=== PATIENT | female | born 1940 | race Caucasian/White ===

== ENCOUNTER → 2019-12-22 | Outpatient (CLI) | payer MEDICARE ==
--- NOTE | 2019-12-22 10:24 | RAD ---
DOPPLER CAROTID BILAT History: Reason: HEADACHE CHANGES / Spl. Instructions: / History: Multiple grayscale, color, and duplex spectral analysis waveform sonographic images were acquired of the carotid, subclavian, and vertebral arteries. Comparison: None Findings: RIGHT SIDE: Peak systolic flow velocity of the distal CCA is 82 cm/sec. Peak systolic flow velocity of the ICA is 16 cm/sec. The ICA/CCA ratio is 0.8. Peak end diastolic flow velocity of the ICA is 19 cm/sec. The peak systolic velocity of the ECA is 123 cm/sec. No significant plaque formation is identified. LEFT SIDE: Peak systolic flow velocity of the distal CCA is 87 cm/sec. Peak systolic flow velocity of the ICA is 80 cm/sec. The ICA/CCA ratio is 1.0. Peak end diastolic flow velocity of the ICA is 25 cm/sec. Peak systolic flow velocity of the ECA is 97 cm/sec. Mild plaque formation is identified. Vertebral arteries: Bilateral vertebral arteries demonstrate antegrade flow. Impression: Atherosclerosis with less than 50 percent stenosis of the left ICA. No stenosis of the right ICA. PQRS Compliance Statement - Stenosis calculations for carotid ultrasound studies are derived from validated velocity criteria which are known to correlate with the NASCET methodology. Electronically signed by: Kaushal Wright MD (12/22/2019 10:21 AM) [id number]
== END ==
LOC: US 09:42
PROVIDERS: ATTEND Family Medicine
DX: I65.22 Occlusion and stenosis of left carotid artery (principal)
CPT/HCPCS: 93880

== ENCOUNTER 2021-03-09 15:18 | Emergency (ER) | payer MEDICARE ==
[~2021-03-09] VITALS: Ht 167.6 cm; Wt 79.5 kg
--- NOTE | 2021-03-09 15:58 | RAD ---
EXAM: Left knee, 3 views. HISTORY: Pain. Fall. COMPARISON: None. FINDINGS: 3 views of the left knee are obtained. There is no fracture, dislocation or subluxation. Th ere is medial compartment spurring. There is a moderate to large joint effusion. There are vascular c alcifications. There is suspected bone demineralization. IMPRESSION: 1. Moderate to large right knee effusion. 2. 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 Electronically signed by: Anastasia Lozoya MD (03/09/2021 3:55 PM) [id number]
[2021-03-09 16:15] VITALS: BP 146/73
[2021-03-09] MEDS ORDERED: HYDROcodone/APAP 5/325MG 1 TAB TABLET ONE (16:26)
[2021-03-09] MEDS: HYDROcodone/APAP 5/325MG 1 TAB TABLET PO ONE (16:32)
--- NOTE | 2021-03-09 16:40 | RAD ---
CT HEAD AND C-SPINE WO History: Fall. Comparison: None. Technique: Noncontrast CT of the head and cervical spine. Findings: CT HEAD: There is no evidence for intracranial mass or hemorrhage. There is no hydrocephalus or midline shift. No abnormal extra-axial fluid collections are present. Godinez/white matter differentiation is preserved. Calcifications of the internal carotid arteries. Prominent pineal calcification. The visualized paranasal sinuses and mastoid air cells are clear. The skull and scalp are within normal limits. Postsurgical changes of the lenses. CT CERVICAL SPINE: There is no evidence for fracture in the cervical spine. Alignment is normal. Multilevel degenerative disc disease with disc space narrowing and disc osteophyte complexes. Central disc protrusion at C4-C5 narrows the spinal canal to approximately 6 mm and at C5-C6 narrows the spi nal canal to approximately 7 mm. No destructive osseous lesions are seen. Limited evaluation of the soft tissues of the neck and of the upper chest is unremarkable. Impression: 1. No acute intracranial findings. 2. No acute osseous abnormality in the cervical spine. 3. Multilevel cervical degenerative disc disease with moderate to severe spinal canal stenosis at C4 -C5 where central disc protrusion narrows the canal to approximately 6 mm and moderate stenosis at C5 -C6 where disc protrusion narrows the canal to 7 mm. ------- Exposure: One or more of the following individualized dose reduction techniques were utilized for thi s examination: 1. Automated exposure control 2. Adjustment of the mA and/or kV according to patient size 3. Use of iterative reconstruction technique. Electronically signed by: Ciro Farris MD (03/09/2021 4:38 PM) [id number]
--- NOTE | 2021-03-09 17:06 | PHYS DOC ---
Past History Past Surgical History: No Surgical History (WINIFRED ROSALES APRN) General Adult EDM: Chief Complaint: KNEE INJURY HPI: HPI: Patient is a 80-year-old female presents after a fall. Patient states that she tripped on the curb and fell onto her knees and hit her head on the concrete. Patient has an abrasion to the right side of her forehead along with left knee swelling. Patient denies loss of consciousness. Denies blood thinners. Denies neck pain. Patient reports taking hydrocodone after incident occurred. Patient still reporting left knee pain. (WINIFRED ROSALES APRN) Review of Systems: Review of Systems: Constitutional: Denies fever or chills Eyes: Denies change in visual acuity HENT: Denies nasal congestion or sore throat Respiratory: Denies cough or shortness of breath Cardiovascular: Denies chest pain or edema GI: Denies abdominal pain, nausea, vomiting, bloody stools or diarrhea : Denies dysuria Musculoskeletal: Reports left knee pain. Denies back pain or joint pain Integument: Denies rash Neurologic: Denies headache, focal weakness or sensory changes Endocrine: Denies polyuria or polydipsia Lymphatic: Denies swollen glands Psychiatric: Denies depression or anxiety (WINIFRED ROSALES APRN) Current Medications: Current Meds: Current Medications Medications (Trade) Dose Ordered Sig/Phil Start Time Stop Time Status Last Admin Dose Admin Acetaminophen/ Hydrocodone Bitart (Lortab 5/325) 1 tab STK-MED ONCE 03/09/21 16:26 03/09/21 16:26 DC (WINIFRED ROSALES APRN) Allergies: Allergies: Allergies Coded Allergies Type Severity Reaction Last Updated Verified cortisone Allergy Unknown 03/09/21 Yes Uncoded Allergies Type Severity Reaction Last Updated Verified PENICILLIN Allergy Unknown 03/09/21 (WINIFRED ROSALES APRN) Physical Exam: PE: Constitutional: Well developed, well nourished, no acute distress, non-toxic appearance. [] HENT: Normocephalic, atraumatic, bilateral external ears normal, oropharynx moist, no oral exudates, nose normal. [] Eyes: PERRLA, EOMI, conjunctiva normal, no discharge. [] Neck: Normal range of motion, no tenderness, supple, no stridor. [] Cardiovascular:Heart rate regular rhythm, no murmur [] Lungs & Thorax: Bilateral breath sounds clear to auscultation [] Abdomen: Bowel sounds normal, soft, no tenderness, no masses, no pulsatile masses. [] Skin: Abrasion to right side, anterior forehead Back: No tenderness, no CVA tenderness. [] Extremities: Left knee tenderness, bruising, ROM intact, swelling noted Neurologic: Alert and oriented X 3, normal motor function, normal sensory function, no focal deficits noted. [] Psychologic: Affect normal, judgement normal, mood normal. [] (WINIFRED ROSALES APRN) Current Patient Data: Vital Signs: Vital Signs Date Time Temp Pulse Resp B/P (MAP) Pulse Ox O2 Delivery O2 Flow Rate FiO2 03/09/21 16:32 20 Room Air 03/09/21 16:15 98.2 62 146/73 98 (WINIFRED ROSALES APRN) EKG: EKG: [] (WINIFRED ROSALES APRN) Radiology/Procedures: Radiology/Procedures: EXAM: Left knee, 3 views. HISTORY: Pain. Fall. COMPARISON: None. FINDINGS: 3 views of the left knee are obtained. There is no fracture, dislocation or subluxation. There is medial compartment spurring. There is a moderate to large joint effusion. There are vascular calcifications. There is suspected bone demineralization. IMPRESSION: 1. Moderate to large right knee effusion. 2. 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 Electronically signed by: Anastasia Lozoya MD (03/09/2021 3:55 PM) [id number] CT HEAD AND C-SPINE WO History: Fall. Comparison: None. Technique: Noncontrast CT of the head and cervical spine. Findings: CT HEAD: There is no evidence for intracranial mass or hemorrhage. There is no hydrocephalus or midline shift. No abnormal extra-axial fluid collections are present. Godinez/white matter differentiation is preserved. Calcifications of the internal carotid arteries. Prominent pineal calcification. The visualized paranasal sinuses and mastoid air cells are clear. The skull and scalp are within normal limits. Postsurgical changes of the lenses. CT CERVICAL SPINE: There is no evidence for fracture in the cervical spine. Alignment is normal. Multilevel degenerative disc disease with disc space narrowing and disc osteophyte complexes. Central disc protrusion at C4-C5 narrows the spinal canal to approximately 6 mm and at C5-C6 narrows the spinal canal to approximately 7 mm. No destructive osseous lesions are seen. Limited evaluation of the soft tissues of the neck and of the upper chest is unremarkable. Impression: 1. No acute intracranial findings. 2. No acute osseous abnormality in the cervical spine. 3. Multilevel cervical degenerative disc disease with moderate to severe spinal canal stenosis at C4-C5 where central disc protrusion narrows the canal to approximately 6 mm and moderate stenosis at C5-C6 where disc protrusion narrows the canal to 7 mm. ------- Exposure: One or more of the following individualized dose reduction techniques were utilized for this examination: 1. Automated exposure control 2. Adjustment of the mA and/or kV according to patient size 3. Use of iterative reconstruction technique. Electronically signed by: Ciro Farris MD (03/09/2021 4:38 PM) [id number] (WINIFRED ROSALES APRN) Heart Score: C/O Chest Pain: No Risk Factors: Risk Factors: DM, Current or recent (<one month) smoker, HTN, HLP, family history of CAD, obesity. Risk Scores: Score 0 - 3: 2.5% MACE over next 6 weeks - Discharge Home Score 4 - 6: 20.3% MACE over next 6 weeks - Admit for Clinical Observation Score 7 - 10: 72.7% MACE over next 6 weeks - Early Invasive Strategies (WINIFRED ROSALES APRN) Course & Med Decision Making: Course & Med Decision Making Pertinent Labs and Imaging studies reviewed. (See chart for details) [] 80-year-old female who presents after a fall at home. Patient states that she tripped over the sidewalk and fell onto her belly. Patient states that she had the right side, anterior head. Denies blood thinners. Denies loss of consciousness. Patient is also reporting pain and bruising to her left knee. Patient still has range of motion intact. Patient given 5/325 hydrocodone for discomfort. Left knee x-rays negative for fracture. CT head neck negative for fracture or intracranial bleeding. Discussed results with patient. Gave rice instructions. Advised patient to call her PCP and make a follow-up appointment for tomorrow. Patient given strict return precautions. Patient is hemodynamically stable upon disposition. (WINIFRED ROSALES APRN) Lesly Disclaimer: Lesly Disclaimer: This electronic medical record was generated, in whole or in part, using a voice recognition dictation system. (WINIFRED ROSALES APRN) Departure Departure: Impression: Primary Impression: Fall Qualified Codes: W19.XXXA - Unspecified fall, initial encounter Additional Impression: Swelling of knee joint, left Disposition: HOME / SELF CARE / HOMELESS Condition: STABLE Referrals: BENJI WINN MD (PCP) Patient Instructions: RICE - Routine Care for Injuries, [id number] Additional Instructions: You are seen in the emergency room after tripping and falling at home. X-ray of your knee was negative. CT head and neck was negative for fracture or bleeding. Its important that you rest, use ice to the area, continue using the knee brace, and elevate to help with swelling and pain. Ibuprofen and Tylenol at home for discomfort. Please call your PCP and make a follow-up appointment for further management. Return to the emergency room if you have worsening symptoms or concerns. EMERGENCY DEPARTMENT GENERAL DISCHARGE INSTRUCTIONS Thank you for coming to [facility] (ED) today and trusting us with you care. We trust that you had a positivie experience in our Emergency Department. If you wish to speak to the department management, you may call the director at [phone]. YOUR FOLLOW UP INSTRUCTIONS ARE FOLLOWS: 1. Do you have a private Doctor? If you do not have a private doctor, please a sk for a resource list of physicians or clinics that may be able to assist you with follow up care. 2. The Emergency Physician has interpreted your x-rays. The X-Ray specialist will also review them. If there is a change in the findings, you will be notified in 48 hours when at all possible. 3. A lab test or culture has been done, your results will be reviewed and you will be notified if you need a change in treatment. ADDITIONAL INSTRUCTIONS AND INFORMATION: 1. Your care today has been supervised by a physician who is specially trained in emergency care. Many problems require more than one evaluation for a complete diagnosis and treatment. We recommend that you schedule your follow up appointment as recommended to ensure complete treatment of you illness or injury. If you are unable to obtain follow up care and continue to have a problem, or if your condition worsens, we recommend that you return to the ED. 2. We are not able to safely determine your condition over the phone nor are we able to give sound medical advice over the phone. For these safety reasons, if you call for medical advice we will ask you to come to the ED for further evaluation. 3. If you have any questions regarding these discharge instructions please call the ED at [phone]. SAFETY INFORMATION: In the interest of safety, wellness, and injury prevention; we encourage you to wear your sealbelt, if you smoke; quite smoking, and we encourage family to use a protective helmet for bicycling and other sporting events that present an increased risk for head injury. IF YOUR SYMPTOMS WORSEN OR NEW SYMPTOMS DEVELOP, OR YOU HAVE CONCERNS ABOUT YOUR CONDITION; OR IF YOUR CONDITION WORSENS WHILE YOU ARE WAITING FOR YOUR FOLLOW UP APPOINTMENT; EITHER CONTACT YOUR PRIMARY CARE DOCTOR, THE PHYSICIAN WHOSE NAME AND NUMBER YOU WERE GIVEN, OR RETURN TO THE ED IMMEDIATELY. Attending Signature Attending Signature I have reviewed the PA/RIP TAILER's note and plan of care. I was available for cons ultation as needed during the patient's visit in the emergency department. I agree with the clinical impression, plan, and disposition. (ELIZABETH HARRINGTON DO) WINIFRED ROSALES APRN Mar 09, 2021 17:06 ELIZABETH HARRINGTON DO Mar 09, 2021 23:35
== END 2021-03-09 17:28 | disposition home or self-care (01) ==
LOC: ER 15:18
DX: S80.02XA Contusion of left knee, initial encounter (principal); S00.81XA Abrasion of other part of head, initial encounter; Z88.8 Allergy status to other drugs, medicaments and biological substances; W10.1XXA Fall (on)(from) sidewalk curb, initial encounter; Y93.89 Activity, other specified; Y92.89 Other specified places as the place of occurrence of the external cause; Y99.8 Other external cause status
CPT/HCPCS: 70450; 72125; 73562; 99285

== ENCOUNTER 2021-04-22 10:51 | Emergency (ER) | payer MEDICARE ==
[~2021-04-22] VITALS: Ht 167.6 cm; Wt 79.5 kg
[2021-04-22 10:52] VITALS: BP 157/71
--- NOTE | 2021-04-22 10:58 | PHYS DOC ---
Past History Past Surgical History: No Surgical History Alcohol Use: None General Adult EDM: Chief Complaint: NAUSEA/VOMITING/DIARRHEA HPI: HPI: Patient is an 80-year-old female who presents to the emergency department for generalized weakness, nausea and decreased appetite for a week. Patient reports that she had a knee replacement on her left knee on April 04 and ever since then has had the symptoms. Patient states that she was seen by her primary care provider and evaluated but was told that if her symptoms persist to go to the emergency department. She reports that she does not have any pain to her surgical site, had los out without any complications. Patient denies vomiting, diarrhea, fevers, shortness of breath, chest pain, abdominal pain, dysuria. Patient's vital signs are stable and she is in no acute distress. Review of Systems: Review of Systems: 14 body systems of the review of systems have been reviewed. See HPI for pertinent positive and negative responses, otherwise all other systems are negative, nonpertinent or noncontributory Allergies: Allergies: Allergies Coded Allergies Type Severity Reaction Last Updated Verified cortisone Allergy Unknown 03/09/21 Yes Uncoded Allergies Type Severity Reaction Last Updated Verified PENICILLIN Allergy Unknown 03/09/21 Physical Exam: PE: Constitutional: Well developed, well nourished, no acute distress, non-toxic appearance. [] HENT: Normocephalic, atraumatic, bilateral external ears normal, oropharynx moist, no oral exudates, nose normal. [] Eyes: PERRL, EOMI, conjunctiva normal, no discharge. [] Neck: Normal range of motion, no stridor Cardiovascular:Heart rate regular rhythm, no murmur [] Lungs & Thorax: Bilateral breath sounds clear to auscultation [] Abdomen: Bowel sounds normal, soft, no tenderness, no masses, no pulsatile masses. [] Skin: Warm, dry, no erythema, no rash. [] Back: Normal range of motion Extremities: No tenderness, no cyanosis, no clubbing, ROM intact, no edema. [] Neurologic: Alert and oriented X 3, normal motor function, normal sensory function, no focal deficits noted, patient moving all 4 extremities equally patient able to bear weight and ambulate. [] Psychologic: Affect normal, judgement normal, mood normal. [] Current Patient Data: Labs: Laboratory Tests Test 04/22/21 11:08 04/22/21 11:20 White Blood Count 9.2 x10^3/uL Red Blood Count 4.35 x10^6/uL Hemoglobin 13.0 g/dL Hematocrit 38.7 % Mean Corpuscular Volume 89 fL Mean Corpuscular Hemoglobin 30 pg Mean Corpuscular Hemoglobin Concent 34 g/dL Red Cell Distribution Width 14.0 % Platelet Count 684 x10^3/uL Neutrophils (%) (Auto) 77 % Lymphocytes (%) (Auto) 11 % Monocytes (%) (Auto) 9 % Eosinophils (%) (Auto) 1 % Basophils (%) (Auto) 1 % Neutrophils # (Auto) 7.1 x10^3uL Lymphocytes # (Auto) 1.0 x10^3/uL Monocytes # (Auto) 0.8 x10^3/uL Eosinophils # (Auto) 0.1 x10^3/uL Basophils # (Auto) 0.1 x10^3/uL Sodium Level 133 mmol/L Potassium Level 3.3 mmol/L Chloride Level 94 mmol/L Carbon Dioxide Level 28 mmol/L Anion Gap 11 Blood Urea Nitrogen 23 mg/dL Creatinine 0.8 mg/dL Estimated GFR (Cockcroft-Gault) 68.8 BUN/Creatinine Ratio 29 Glucose Level 114 mg/dL Calcium Level 10.3 mg/dL Total Bilirubin 0.8 mg/dL Aspartate Amino Transf (AST/SGOT) 31 U/L Alanine Aminotransferase (ALT/SGPT) 38 U/L Alkaline Phosphatase 169 U/L Troponin I Quantitative < 0.017 ng/mL Total Protein 7.5 g/dL Albumin 3.6 g/dL Albumin/Globulin Ratio 0.9 Urine Collection Type Unknown Urine Color Yellow Urine Clarity Clear Urine pH 7.5 Urine Specific [place] 1.015 Urine Protein Neg Urine Glucose (UA) Neg mg/dL Urine Ketones (Stick) Neg mg/dL Urine Blood Neg Urine Nitrite Neg Urine Bilirubin Neg Urine Urobilinogen Dipstick 0.2 mg/dL Urine Leukocyte Esterase Small Urine RBC 0 /HPF Urine WBC 1-4 /HPF Urine Squamous Epithelial Cells Occ /LPF Urine Bacteria Few /HPF Urine Mucus Slight /LPF Current Medications Medications (Trade) Dose Ordered Sig/Phil Route PRN Reason Start Time Stop Time Status Last Admin Dose Admin Sodium Chloride 1,000 ml @ 1,000 mls/hr Q1H IV 04/22/21 11:00 04/22/21 11:59 04/22/21 11:00 EKG: EKG: EKG performed by ER staff at 1058 shows sinus rhythm with a rate of 85, QTC of 426, no STEMI read by Dr. Knox at 1104 [] Radiology/Procedures: Radiology/Procedures: []PROCEDURE: PORTABLE CHEST 1V EXAM: Chest, single view. HISTORY: Weakness. COMPARISON: None. FINDINGS: A frontal view of the chest is obtained. There is no infiltrate, pleural effusion or pneumothorax. There is a large hiatal hernia. The heart is normal in size. IMPRESSION: 1. No acute pulmonary finding. 2. Large hiatal hernia. Electronically signed by: Anastasia Harper MD (04/22/2021 11:29 AM) [id number] DICTATED AND SIGNED BY: ANASTASIA HARPER MD DATE: 04/22/21 111 CC: BENJI WINN MD; SEBASTIEN WESTFALL PLANE CAPTAIN ~MTH0 0 Heart Score: C/O Chest Pain: No Risk Factors: Risk Factors: DM, Current or recent (<one month) smoker, HTN, HLP, family history of CAD, obesity. Risk Scores: Score 0 - 3: 2.5% MACE over next 6 weeks - Discharge Home Score 4 - 6: 20.3% MACE over next 6 weeks - Admit for Clinical Observation Score 7 - 10: 72.7% MACE over next 6 weeks - Early Invasive Strategies Course & Med Decision Making: Course & Med Decision Making Pertinent Labs and Imaging studies reviewed. (See chart for details) Patient is an 80-year-old female who presents to the emergency department for decreased appetite, generalized weakness and nausea. Work-up in the ER consisted of blood work, EKG, urinalysis and chest x-ray. Patient treated with an IV of normal saline and zofran. Patient's potassium was noted to be 3.3, this is a place in the emergency department. Her urinalysis shows a mild urinary tract infection which should be treated with an antibiotic. Patient states that she tolerates cephalosporins. Patient states that she has Zofran ODT at home that was previously prescribed by Dr. Mckeon, she was advised to continue taking that. Patient was noted to have a large hiatal hernia which is most likely the cause for her nausea. Patient referred to a general surgeon. vss. I discussed with patient all findings and diagnostic testing as well as the need to follow-up with PCP for further evaluation and treatment or return to the ER if any new or worsening symptoms. Strict return precautions were also discussed at length. Patient voiced understanding and agreement with the plan. Patient is hemodynamically stable at the time of disposition. Dragon Disclaimer: Dragon Disclaimer: This electronic medical record was generated, in whole or in part, using a voice recognition dictation system. Departure Departure: Impression: Primary Impression: Urinary tract infection Qualified Codes: N30.00 - Acute cystitis without hematuria Additional Impression: Hiatal hernia Disposition: HOME / SELF CARE / HOMELESS Condition: GOOD Referrals: BENJI WINN MD (PCP) Patient Instructions: Hernia, Urinary Tract Infection Additional Instructions: You were seen in the emergency department for generalized weakness along with nausea. You were noted to have a urinary tract infection, this will be treated with an antibiotic. Please start and finish it completely. Increase your fluids at home. Avoid bladder irritants such as caffeine, sugary beverages or alcohol. You stated that you had a nausea prescription that was written by Dr. Mckeon, continue taking this as needed. Your imaging showed a large hiatal hernia which is likely the cause for your nausea. You will need to follow-up with a general surgeon. You can follow-up with the general surgery group at [facility] by calling [phone] to set up a follow-up appointment. Follow-up with your primary care provider tomorrow regarding your ER visit. Please return to the emergency department if you develop severe abdominal pain, intractable nausea or vomiting, blood in your stools or vomit, h igh high fevers refractory to treatment or any new or worsening concerns. EMERGENCY DEPARTMENT GENERAL DISCHARGE INSTRUCTIONS Thank you for coming to [facility] (ED) today and trusting us with you care. We trust that you had a positivie experience in our Emergency Department. If you wish to speak to the department management, you may call the director at . YOUR FOLLOW UP INSTRUCTIONS ARE FOLLOWS: 1. Do you have a private Doctor? If you do not have a private doctor, please ask for a resource list of physicians or clinics that may be able to assist you with follow up care. 2. The Emergency Physician has interpreted your x-rays. The X-Ray specialist will also review them. If there is a change in the findings, you will be notified in 48 hours when at all possible. 3. A lab test or culture has been done, your results will be reviewed and you will be notified if you need a change in treatment. ADDITIONAL INSTRUCTIONS AND INFORMATION: 1. Your care today has been supervised by a physician who is specially trained in emergency care. Many problems require more than one evaluation for a complete diagnosis and treatment. We recommend that you schedule your follow up appointment as recommended to ensure complete treatment of you illness or injury. If you are unable to obtain follow up care and continue to have a problem, or if your condition worsens, we recommend that you return to the ED. 2. We are not able to safely determine your condition over the phone nor are we able to give sound medical advice over the phone. For these safety reasons, if you call for medical advice we will ask you to come to the ED for further evaluation. 3. If you have any questions regarding these discharge instructions please call the ED at [phone]. SAFETY INFORMATION: In the interest of safety, wellness, and injury prevention; we encourage you to wear your sealbelt, if you smoke; quite smoking, and we encourage family to use a protective helmet for bicycling and other sporting events that present an increased risk for head injury. IF YOUR SYMPTOMS WORSEN OR NEW SYMPTOMS DEVELOP, OR YOU HAVE CONCERNS ABOUT YOUR CONDITION; OR IF YOUR CONDITION WORSENS WHILE YOU ARE WAITING FOR YOUR FOLLOW UP APPOINTMENT; EITHER CONTACT YOUR PRIMARY CARE DOCTOR, THE PHYSICIAN WHOSE NAME AND NUMBER YOU WERE GIVEN, OR RETURN TO THE ED IMMEDIATELY. Scripts Cephalexin (CEPHALEXIN) 500 Mg Tablet 1 TAB PO BID for UTI for 7 Days, #14 TAB 0 Refills Prov: SEBASTIEN WESTFALL APRN 04/22/21 SEBASTIEN WESTFALL APRN Apr 22, 2021 10:58
[2021-04-22] MEDS: IV NORMAL SALINE 1,000ML 1,000 ML IV SCH (11:00)
[2021-04-22 11:26] LABS: BASO # 0.1 x10^3/uL (0.0-0.2); BASO % 1 % (0-3); EOS # 0.1 x10^3/uL (0.0-0.7); EOS % 1 % (0-3); HEMATOCRIT 38.7 % (36.0-47.0); LYMPH % 11 % (24-48); MEAN CORPUSCULAR HEMOGLOBIN 30 pg (25-35); MEAN CORPUSCULAR HGB CONC 34 g/dL (31-37); MEAN CORPUSCULAR VOLUME 89 fL (79-100); MONO # 0.8 x10^3/uL (0.0-1.1); MONO % 9 % (0-9); NEUT # 7.1 x10^3uL (1.8-7.7); NEUT % 77 % (31-73); PLATELET COUNT 684 x10^3/uL (140-400); RED BLOOD COUNT 4.35 x10^6/uL (3.50-5.40); WHITE BLOOD COUNT 9.2 x10^3/uL (4.0-11.0)
--- NOTE | 2021-04-22 11:31 | RAD ---
EXAM: Chest, single view. HISTORY: Weakness. COMPARISON: None. FINDINGS: A frontal view of the chest is obtained. There is no infiltrate, pleural effusion or pneumo thorax. There is a large hiatal hernia. The heart is normal in size. IMPRESSION: 1. No acute pulmonary finding. 2. Large hiatal hernia. Electronically signed by: Anastasia Lozoya MD (04/22/2021 11:29 AM) [id number]
[2021-04-22 11:39] LABS: CALCIUM 10.3 mg/dL (8.5-10.1); CREATININE 0.8 mg/dL (0.6-1.0); GFR 68.8; POTASSIUM 3.3 mmol/L (3.5-5.1)
[2021-04-22 11:45] LABS: ALBUMIN 3.6 g/dL (3.4-5.0); ALBUMIN/GLOBULIN RATIO 0.9 (1.0-1.7); TOTAL BILIRUBIN 0.8 mg/dL (0.2-1.0); TOTAL PROTEIN 7.5 g/dL (6.4-8.2)
[2021-04-22 11:46] LABS: BILIRUBIN,URINE NEG (NEG); CLARITY,URINE CLEAR; COLOR,URINE YELLOW; GLUCOSE,URINE NEG (NEG); NITRITE,URINE NEG (NEG); UROBILINOGEN,URINE 0.2 mg/dL (0.2 mg/dL)
[2021-04-22 11:47] LABS: BACTERIA,URINE FEW /HPF (0-FEW); RBC,URINE 0 /HPF (0-2); SQUAMOUS EPITHELIAL CELL,UR OCC /LPF
--- NOTE | 2021-04-22 12:03 | EKG ---
[address] [address] Test Date: 2021-04-22 Test Time: 10:58:29 Pat Name: DANIEL PEREZ Department: Room: Gender: F Hypo Dipper: TOÑO : 1940 Requested By: SEBASTIEN WESTFALL Order Number: [id number] Reading MD: Yuan Stapleton Measurements Intervals [place] Rate: 85 P: 12 [place]: 144 QRS: 2 QRSD: 88 T: 31 QT: 358 QTc: 426 Interpretive Statements SINUS RHYTHM ATRIAL PREMATURE COMPLEX(ES) Electronically Signed On 04-24-2021 16:49:43 CDT by Yuan Stapleton
[2021-04-22] MEDS ORDERED: CEPH500T PO (12:06)
[2021-04-22] MEDS: ONDANSETRON PF 4 MG/2 ML VIAL. IVP ONE (12:19)
[2021-04-22] MEDS: CEPHALEXIN 250 MG CAPSULE PO ONE (12:20)
[2021-04-22] MEDS: POTASSIUM CHLORIDE 20 MEQ TABLET.ER. PO ONE (12:20)
== END 2021-04-22 12:24 | disposition home or self-care (01) ==
LOC: ER 10:51
DX: N39.0 Urinary tract infection, site not specified (principal); K44.9 Diaphragmatic hernia without obstruction or gangrene
CPT/HCPCS: 36415; 71045; 80053; 81001; 84484; 85025; 87086; 93005; 96361; 96374; 99285; J2405; J7030

== ENCOUNTER 2021-04-27 09:37 | Inpatient (IN) | payer MEDICARE ==
[~2021-04-27] VITALS: Ht 160 cm; Wt 68.7 kg
[~2021-04-27 09:37] MED LIST: CEPH500T PO
--- NOTE | 2021-04-27 10:10 | PHYS DOC ---
Past History Past Surgical History: Knee Replacement Alcohol Use: None Adult General HPI HPI Patient is a 80-year-old female presenting via POV for weakness. She was here 5 days prior for evaluation and at that time was diagnosed with a UTI and subsequently put on antibiotics. Culture came back and unremarkable for any acute abnormalities but patient remains on antibiotics. She saw her primary care physician yesterday due to ongoing malaise, weakness, nausea and feelings of urinary retention. Because of that, patient had Ford catheter placed. She had this overnight and presented today for removal which was performed and uncomplicated in nature. Nonetheless, given ongoing nausea and malaise PCP directed patient to our ER for evaluation Review of Systems Review of Systems Fourteen body systems of review of systems have been reviewed. See HPI for pertinent positives and negative responses, other nguyễn all other systems are negative, non-pertinent or non-contributory Allergies Allergies Allergies Coded Allergies Type Severity Reaction Last Updated Verified cortisone Allergy Unknown 03/09/21 Yes Uncoded Allergies Type Severity Reaction Last Updated Verified PENICILLIN Allergy Unknown 03/09/21 Physical Exam Physical Exam Constitutional: Well developed, well nourished, no acute distress, non-toxic appearance. HENT: Normocephalic, atraumatic, bilateral external ears normal, oropharynx moist, no oral exudates, nose normal. Eyes: PERRLA, EOMI, conjunctiva normal, no discharge. Neck: Normal range of motion, no tenderness, supple, no stridor. Cardiovascular: Heart rate regular, sinus rhythm, no murmurs rubs or gallops Lungs & Thorax: Bilateral breath sounds clear to auscultation Abdomen: Bowel sounds normal, soft, no tenderness, no masses, no pulsatile masses. Nonsurgical abdomen, no peritoneal signs Skin: Warm, dry, no erythema, no rash. Back: No tenderness, no CVA tenderness. Extremities: No tenderness, no cyanosis, no clubbing, ROM intact, no edema. Neurologic: Alert and oriented X 3, grossly normal motor & sensory function, no focal deficits noted. Psychologic: Affect normal, judgement normal, mood normal. Current Patient Data Vital Signs Vital Signs Date Time Temp Pulse Resp B/P (MAP) Pulse Ox O2 Delivery O2 Flow Rate FiO2 04/27/21 10:43 97.8 72 16 164/64 (97) 99 Vital Signs Date Time Temp Pulse Resp B/P (MAP) Pulse Ox O2 Delivery O2 Flow Rate FiO2 10/13/21 10:43 97.8 72 16 164/64 (97) 99 Lab Results Laboratory Tests Test 04/27/21 10:33 White Blood Count 8.7 x10^3/uL Red Blood Count 4.33 x10^6/uL Hemoglobin 13.0 g/dL Hematocrit 37.6 % Mean Corpuscular Volume 87 fL Mean Corpuscular Hemoglobin 30 pg Mean Corpuscular Hemoglobin Concent 34 g/dL Red Cell Distribution Width 14.0 % Platelet Count 472 x10^3/uL Neutrophils (%) (Auto) 74 % Lymphocytes (%) (Auto) 13 % Monocytes (%) (Auto) 10 % Eosinophils (%) (Auto) 2 % Basophils (%) (Auto) 1 % Neutrophils # (Auto) 6.5 x10^3uL Lymphocytes # (Auto) 1.1 x10^3/uL Monocytes # (Auto) 0.9 x10^3/uL Eosinophils # (Auto) 0.2 x10^3/uL Basophils # (Auto) 0.1 x10^3/uL Sodium Level 121 mmol/L Potassium Level 3.3 mmol/L Chloride Level 85 mmol/L Carbon Dioxide Level 26 mmol/L Anion Gap 10 Blood Urea Nitrogen 13 mg/dL Creatinine 0.6 mg/dL Estimated GFR (Cockcroft-Gault) 95.9 BUN/Creatinine Ratio 22 Glucose Level 112 mg/dL Calcium Level 9.8 mg/dL Total Bilirubin 0.8 mg/dL Aspartate Amino Transf (AST/SGOT) 31 U/L Alanine Aminotransferase (ALT/SGPT) 26 U/L Alkaline Phosphatase 152 U/L Troponin I Quantitative < 0.017 ng/mL Total Protein 7.2 g/dL Albumin 3.2 g/dL Albumin/Globulin Ratio 0.8 Lipase 312 U/L Current Medications Medications (Trade) Dose Ordered Sig/Phil Route PRN Reason Start Time Stop Time Status Last Admin Dose Admin Ondansetron HCl (Zofran Odt) 4 mg 1X ONCE PO 04/27/21 10:15 04/27/21 10:25 DC EKG EKG EKG ordered and interpreted by myself at 1034 hrs. as sinus rhythm at 75 bpm, unremarkable intervals, no axis deviation, no acute ischemic findings, no STEMI Radiology/Procedures Radiology/Procedures [] Heart Score C/O Chest Pain: No HEART Score for Chest Pain: HEART Score for Chest Pain Response (Comments) Value History Slighlty/Non-Suspicious 0 ECG Normal 0 Age > 65 2 Risk Factors >3 Risk Factors or Hx CAD 2 Troponin < Normal Limit 0 Total 4 Risk Factors: Risk Factors: DM, Current or recent (<one month) smoker, HTN, HLP, family history of CAD, obesity. Risk Scores: Risk Factors: DM, Current or recent (<one month) smoker, HTN, HLP, family history of CAD, obesity. Course & Med Decision Making Course & Med Decision Making ABCs unremarkable HPI and physical exam nonconcerning but comprehensive ER work-up yielded hyponatremia and patient who utilizes diuretic medication (she is unsure of which one). She has not taken this today I contacted PCP who also would service hospitalist and reviewed need for h ospital admission for further correction of hyponatremia given risk of further decline and risk for seizures etc. He was amenable to admission and accepted patient under his care I updated patient on all ER findings and need for hospital admission, she was amenable. She states she is full CODE STATUS at time of admission. All questions and concerns addressed prior to transport to [facility] for admission Dragon Disclaimer Dragon Disclaimer This electronic medical record was generated, in whole or in part, using a voice recognition dictation system. Departure Departure: Impression: Primary Impression: Acute hyponatremia Disposition: ADMITTED INPATIENT Admitting Physician: Shawn Winn Condition: STABLE Referrals: SHAWN WINN MD (PCP) FRANC FREEDMAN DO Apr 27, 2021 10:10
[2021-04-27] MEDS ORDERED: ONDANSETRON ODT 4 MG TAB.RAPDIS PO ONE (10:15)
--- NOTE | 2021-04-27 10:35 | EKG ---
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
[2021-04-27 10:49] LABS: BASO # 0.1 x10^3/uL (0.0-0.2); BASO % 1 % (0-3); EOS # 0.2 x10^3/uL (0.0-0.7); EOS % 2 % (0-3); HEMATOCRIT 37.6 % (36.0-47.0); LYMPH # 1.1 x10^3/uL (1.0-4.8); LYMPH % 13 % (24-48); MEAN CORPUSCULAR HEMOGLOBIN 30 pg (25-35); MEAN CORPUSCULAR HGB CONC 34 g/dL (31-37); MEAN CORPUSCULAR VOLUME 87 fL (79-100); MONO # 0.9 x10^3/uL (0.0-1.1); MONO % 10 % (0-9); NEUT # 6.5 x10^3uL (1.8-7.7); NEUT % 74 % (31-73); PLATELET COUNT 472 x10^3/uL (140-400); RED BLOOD COUNT 4.33 x10^6/uL (3.50-5.40); WHITE BLOOD COUNT 8.7 x10^3/uL (4.0-11.0)
[2021-04-27 11:08] LABS: CALCIUM 9.8 mg/dL (8.5-10.1); CREATININE 0.6 mg/dL (0.6-1.0); GFR 95.9; POTASSIUM 3.3 mmol/L (3.5-5.1)
[2021-04-27 11:16] LABS: ALBUMIN 3.2 g/dL (3.4-5.0); ALBUMIN/GLOBULIN RATIO 0.8 (1.0-1.7); TOTAL BILIRUBIN 0.8 mg/dL (0.2-1.0); TOTAL PROTEIN 7.2 g/dL (6.4-8.2)
[2021-04-27] MEDS ORDERED: NITROGLYCERIN SUBLINGUAL 0.4 MG BOTTLE OF 25. SL PRN (12:00)
[2021-04-27] MEDS ORDERED: ACETAMINOPHEN 325 MG TABLET PO PRN (12:00)
[2021-04-27 15:12] VITALS: BP 148/87
[2021-04-27] MEDS ORDERED: TORS10TA3 PO (16:28)
[2021-04-27] MEDS ORDERED: SPIR25TA5 PO (16:28)
[2021-04-27] MEDS ORDERED: OMEG1CAP38 PO (16:28)
[2021-04-27] MEDS ORDERED: VIT1TABL32 PO (16:28)
[2021-04-27] MEDS ORDERED: LOSA50TA14 PO (16:28)
[2021-04-27] MEDS ORDERED: ATOR20TA58 PO (16:28)
[2021-04-27] MEDS ORDERED: METO50TA29 PO (16:28)
[2021-04-27] MEDS ORDERED: FAMO10TA26 PO (16:28)
[2021-04-27] MEDS ORDERED: GLUC1CAP11 PO (16:28)
[2021-04-27] MEDS ORDERED: HYDR-2759 PO (16:28)
[2021-04-27] MEDS ORDERED: ONDANSETRON PF 4 MG/2 ML VIAL. IVP PRN (17:00)
[2021-04-27] MEDS ORDERED: HYDROcodone/APAP 5/325MG 1 TAB TABLET PO PRN (17:00)
--- NOTE | 2021-04-27 17:40 | RAD ---
CT STUDY OF THE ABDOMEN AND PELVIS WITHOUT CONTRAST CLINICAL INDICATIONS: Abdominal/pelvic pain. TECHNIQUE: Noncontrast helical CT scanning of the abdomen and pelvis was performed. Without contrast, the sensitivity to detect organ pathology and GI tract pathology is decreased. PQRS compliance Statement One or more of the following individualized dose reduction techniques were utilized for this study: 1. Automated exposure control 2. Adjustment of the mA and/or kV according to patient size 3. Use of iterative reconstruction technique COMPARISON: None available. FINDINGS: The liver and spleen and pancreas are unremarkable on this noncontrast study. Radiopaque ga llstone is seen within the neck of the gallbladder measuring 14 mm. There is curvilinear calcificatio n of the wall of the fundus of the stomach. This may indicate mild dorsal gallbladder. The gallbladde r measures 10.8 cm in longitudinal dimension and therefore is distended. No extrahepatic biliary duct al dilatation is seen. Left adrenal fullness is seen which could be due to an adenoma. A small nonobs tructing stone of the lower pole of the left kidney is seen measuring 3 mm. No hydronephrosis or hydr oureter or ureteral stone is evident. No focal aneurysmal dilatation of the abdominal aorta is seen. No enlarged abdominal or pelvic lymphadenopathy is evident. Urinary bladder is not abnormally distend ed. No uterine mass is seen. No dominant ovarian cyst or mass is apparent. The appendix is normal. Th e terminal ileum is unremarkable. Sigmoid diverticulosis is seen without diverticulitis. No free air or free fluid is evident. There is a large sized hiatal hernia. There is associated compressive atele ctasis of the adjacent left lung base. No lytic process is seen. Hemangioma of T11 and L4 are seen. G rade 1 anterolisthesis of L5-S1 is seen secondary to facet arthropathy. IMPRESSION: 14 mm radiopaque gallstone is seen within the neck of the gallbladder. Gallbladder is dis tended. Mild porcelain gallbladder. Nonobstructive stone of the lower pole left kidney. Large hiatal hernia. Electronically signed by: Apolinar Dick MD (04/27/2021 5:38 PM) [id number]
[2021-04-27 19:07] VITALS: BP 166/74
[2021-04-27] MEDS: IV NORMAL SALINE 1,000ML 1,000 ML IV SCH (19:33)
[2021-04-27] MEDS: SPIRONOLACTONE 25 MG TABLET PO SCH (20:39)
[2021-04-27] MEDS ORDERED: SPIRONOLACTONE 25 MG TABLET PO SCH (21:00)
[2021-04-27 23:13] VITALS: BP 175/77
[2021-04-27 23:28] VITALS: BP 145/79
[2021-04-27 23:39] LABS: BACTERIA,URINE FEW /HPF (0-FEW); BILIRUBIN,URINE NEG (NEG); CLARITY,URINE HAZY; COLOR,URINE YELLOW; GLUCOSE,URINE NEG (NEG); NITRITE,URINE NEG (NEG); RBC,URINE OCC /HPF (0-2); SQUAMOUS EPITHELIAL CELL,UR OCC /LPF; UROBILINOGEN,URINE 0.2 mg/dL (0.2 mg/dL)
[2021-04-28] MEDS: IV NORMAL SALINE 1,000ML 1,000 ML IV SCH ×2 (02:39→11:15)
[2021-04-28 05:18] VITALS: BP 134/72
[2021-04-28 06:06] LABS: CALCIUM 8.7 mg/dL (8.5-10.1); CREATININE 0.6 mg/dL (0.6-1.0); GFR 95.9; POTASSIUM 3.3 mmol/L (3.5-5.1)
[2021-04-28] MEDS: FAMOTIDINE 20 MG TABLET PO SCH ×2 (07:30→07:55)
[2021-04-28] MEDS: MULTIVITAMIN I-VITE TABLET. PO SCH ×2 (07:55→09:00)
[2021-04-28] MEDS: SPIRONOLACTONE 25 MG TABLET PO SCH ×2 (07:55→09:00)
[2021-04-28] MEDS: ATORVASTATIN CALCIUM 20 MG TABLET PO SCH ×2 (07:56→09:00)
[2021-04-28] MEDS: METOPROLOL SUCC 24HR ER 50 MG TAB.ER.24H. PO SCH ×2 (07:56→09:00)
[2021-04-28] MEDS: LOSARTAN 50 MG TABLET. PO SCH ×2 (07:56→09:00)
[2021-04-28 10:51] VITALS: BP 154/75
[2021-04-28] MEDS ORDERED: MORPHINE SULFATE 2 MG/ML DISP.SYRIN. IV PRN (13:00)
--- NOTE | 2021-04-28 14:57 | RAD ---
EXAM: HEPATOBILIARY SCINTIGRAPHY. HISTORY: Abdominal pain/nausea. TECHNIQUE: 5.1 mCi technetium-99m Choletec were administered intravenously and scintigraphic images o f the abdomen obtained. 2.0 mg morphine were administered intravenously after one hour. FINDINGS: There is prompt hepatic clearance of tracer from the blood pool. There is homogeneous distr ibution throughout the liver. There is excretion of activity into the common duct and small bowel. Th e gallbladder did not fill within 30 minutes after administration of morphine. IMPRESSION: 1. Nonfilling of the gallbladder is nonspecific, but is compatible with cystic duct obstruction and a cute cholecystitis. Electronically signed by: Bhanu Mays MD (04/28/2021 2:54 PM) [id number]
[2021-04-28 15:30] VITALS: BP 149/81
[2021-04-28] MEDS ORDERED: CEFEPIME HCL 2 GM in IV NORMAL SALINE 100ML 100 ML IV SCH (18:00)
--- NOTE | 2021-05-04 15:06 | DS ---
DATE OF DISCHARGE: 04/28/2021 HOSPITAL COURSE: An 80-year-old female came in with abdominal pain, nausea, vomiting, unable to empty her bladder. The patient's workup demonstrated she had a porcelain gallbladder, had been having nausea, unable to keep food down and fluids and as a result of this, the patient was admitted to the hospital through the Emergency Room. The patient was evaluated with a PIPIDA scan and demonstrated that she had this porcelain gallbladder. She wanted to and demanded to go to [facility], so that was arranged and she was transferred there for possible surgery. She was also placed on IV antibiotic therapy as well. IMPRESSION: Porcelain gallbladder, abdominal pain, nausea, vomiting, dehydration, urinary tract infection, urinary retention. PLAN: To be transferred via EMS to [facility] per the patient's request. PRATIK DR: Ed TID: [id number]
== END 2021-04-28 18:15 | disposition short-term general hospital (02) | DRG 445 ==
LOC: ER 09:37 → 1 SOUTH 11:47
PROVIDERS: ADMIT Family Medicine; ATTEND Family Medicine
DX: K82.8 Other specified diseases of gallbladder (principal); E87.1 Hypo-osmolality and hyponatremia; N39.0 Urinary tract infection, site not specified; Z96.659 Presence of unspecified artificial knee joint; Z88.0 Allergy status to penicillin; Z88.8 Allergy status to other drugs, medicaments and biological substances; Z20.822 Contact with and (suspected) exposure to COVID-19; E86.0 Dehydration
CPT/HCPCS: 36415; 74176; 78227; 80048; 80053; 81001; 83605; 83690; 84484; 85025; 87077; 87086; 87186; 87426; 93005; A9537; J0692; J2270; J2405; Q0162; U0003; 99285-25; J7030

== ENCOUNTER → 2021-08-02 | Outpatient (CLI) | payer MEDICARE ==
[~2021-08-02] MED LIST changes: +ATOR20TA58 PO; +FAMO10TA26 PO; +GLUC1CAP11 PO; +HYDR-2759 PO; +LOSA50TA14 PO; +METO50TA29 PO; +OMEG1CAP38 PO; +SPIR25TA5 PO; +TORS10TA3 PO; +VIT1TABL32 PO
--- NOTE | 2021-08-02 13:42 | RAD ---
Study: CT lumbar spine without contrast INDICATION: Back pain. COMPARISON: Correlation is made to a CT abdomen/pelvis from 04/27/2021 TECHNIQUE: Axial CT imaging of the lumbar spine performed without the use of intravenous contrast. One or more of the following individualized dose reduction techniques were utilized for this examinat ion: 1. Automated exposure control 2. Adjustment of the mA and/or kV according to patient size 3. Use of iterative reconstruction technique. FINDINGS: Diffuse osteopenia. No acute fracture is identified or aggressive abnormality. No CT evidence for a s acral insufficiency fracture with mild S1 sclerosis also present on the prior. No change in vertebral body height or alignment again with grade 1 anterolisthesis of L5 on S1 and mi llimetric retrolisthesis of T12 on L1 and L1 on L2. A few vertebral body hemangiomas such as within L 4. Mild/moderate disc space height loss at L5-S1 slightly more so than L4-L5. Exaggeration of lumbar lordosis and minimal levocurvature. Partially imaged large hiatal hernia. Interval cholecystectomy. Unchanged hypertrophic left more so t castillo right adrenal glands. Splenic granulomas. Nonobstructing intrarenal stone at the lower pole on th e left. Multifocal calcific atherosclerosis. Colonic diverticuli. The visualized lungs are unchanged. Incompletely evaluated central canal without intrathecal contrast. T10-T11 and T11-T12: No significant osseous central canal or neural foraminal stenosis. T12-L1: Mild disc bulge and facet arthrosis. No evidence for severe central canal stenosis or signifi cant neural foraminal stenosis. L1-L2: Disc bulge, mild endplate osteophytic ridging and mild facet arthrosis. Bony neural foraminal narrowing is mild bilaterally. No evidence for relevant central canal stenosis. L2-L3: Disc bulge, mild facet arthrosis and ligamentum flavum hypertrophy. Estimated mild central can al stenosis. Mild osseous neural foraminal narrowing on the right. The left neural foramen is patent. L3-L4: Disc bulge slightly eccentric to the left. Bilateral facet arthrosis and ligamentum flavum hyp ertrophy. Mild to potentially moderate central canal stenosis. Minimal left more so than right neural foraminal narrowing. L4-L5: Advanced facet arthrosis. Disc bulge and ligamentum flavum hypertrophy. Estimated mild central canal stenosis. Mild bilateral osseous neural foraminal stenosis. L5-S1: Anterolisthesis with disc uncovering. Endplate osteophytic ridging. Advanced facet arthrosis. Possible mild to moderate central canal stenosis. Moderate left more so than right osseous neural for aminal stenosis. IMPRESSION: 1. Diffuse osteopenia. No acute fracture is identified. No appreciable change in vertebral body alig nment from the 04/27/2021 CT abdomen/pelvis again with grade 1 anterolisthesis of L5 on S1. 2. Multilevel degenerative changes with the most advanced facet arthrosis at L4-L5 and L5-S1. Incomp letely assessed central canal but estimated mild to potentially moderate canal stenosis at L3-L4 and L5-S1 and mild at additional levels. The most pronounced osseous neural foraminal stenosis is on the left more so than right at L5-S1 and considered moderate in severity. 3. Chronic nonosseous findings outlined in the body of the report to include a large hiatal hernia. Electronically signed by: JEWEL HAIDER MD (08/02/2021 1:40 PM) [facility]
== END ==
LOC: CT 12:54
PROVIDERS: ATTEND Family Medicine
DX: M47.817 Spondylosis without myelopathy or radiculopathy, lumbosacral region (principal); M48.07 Spinal stenosis, lumbosacral region; M47.815 Spondylosis without myelopathy or radiculopathy, thoracolumbar region; M51.25 Other intervertebral disc displacement, thoracolumbar region; M85.88 Other specified disorders of bone density and structure, other site; M43.17 Spondylolisthesis, lumbosacral region; K44.9 Diaphragmatic hernia without obstruction or gangrene; Z90.49 Acquired absence of other specified parts of digestive tract
CPT/HCPCS: 72131

== ENCOUNTER 2021-12-01 20:47 | Emergency (ER) | payer MEDICARE ==
[~2021-12-01] VITALS: Ht 160 cm; Wt 68.7 kg
--- NOTE | 2021-12-01 21:04 | PHYS DOC ---
Past History Past Medical History: UTI Past Surgical History: Cholecystectomy, Knee Replacement Alcohol Use: None General Adult EDM: Chief Complaint: MECHANICAL FALL HPI: HPI: ". I was going down my deck stairs back wards.. because it is easier on my knees.. and I tripped and fell backwards .. and hit my head...".. " I not sure if I was knock out..."... " I did managed to get up and call my daughter... she called my neighbor.. she's my good friend..".." I am fine now... I don't want a bunch of stuff done.." Patient is a 81 year old female who presents with above hx and complaints trip and fall with head injury.. Neighbor who is with patient currently advises her mentation is back to baseline but did states she had some memory/confusion when she first checked on her. Patient does have a contusion to the top of her head.. Some mild upper neck tenderness. Some scattered small abrasions and contusions. Patient states she feels back to her normal state. Patient does have past medical history of urinary tract infections, hyponatremia, arthritis, GERD, hiatal hernia, some gait problems, but does remain independent living. No recent travel. No specific ill contacts. No recent history of fever or chills. Patient normally follows with Dr. Winn. Patient does agree to CT of head. Review of Systems: Review of Systems: Constitutional: Denies fever or chills Eyes: Denies change in visual acuity HENT: Denies nasal congestion or sore throat . Complaints of head contusion. Respiratory: Denies cough or shortness of breath Cardiovascular: Denies chest pain or edema GI: Denies abdominal pain, nausea, vomiting, bloody stools or diarrhea : Denies dysuria Musculoskeletal: Denies back pain or joint pain Integument: Denies rash Neurologic: Denies headache, focal weakness or sensory changes Endocrine: Denies polyuria or polydipsia Lymphatic: Denies swollen glands Psychiatric: Denies depression or anxiety Family History: Family History: Noncontributory to presentation Current Medications: Current Meds: See nursing for home meds Allergies: Allergies: Allergies Coded Allergies Type Severity Reaction Last Updated Verified Penicillins Allergy Unknown 04/27/21 Yes cortisone Allergy Unknown 03/09/21 Yes Physical Exam: PE: Constitutional: no acute distress, non-toxic appearance. [] HENT: Normocephalic, contusion and hematoma top of head, bilateral external ears normal, oropharynx moist, no oral exudates, nose normal. [] Eyes: PERRLA, EOMI, conjunctiva normal, no discharge. Masses Neck: Normal range of motion, no tenderness, supple, no stridor. [] Cardiovascular:Heart rate regular rhythm, no murmur, PMI slightly to the left Lungs & Thorax: Bilateral breath sounds equal apex auscultation [] Abdomen: Bowel sounds normal, soft, no tenderness, no masses, no pulsatile masses. Old surgery scars Skin: Warm, dry, no erythema, no rash. Poor turgor Back: No tenderness, no CVA tenderness. Kyphosis. Small area of abrasion contusion Extremities: , no cyanosis, no clubbing, ROM are at her baseline,, no edema. Small areas of abrasion contusion elbows. Left knee scar. Arthritic changes. Neurologic: Alert and oriented X 3, normal motor function, normal sensory function, no focal deficits noted. [] Psychologic: Affect normal, judgement reportedly at her baseline per her daughter and her neighbor,, mood normal. [] Current Patient Data: Vital Signs: Vital Signs Date Time Temp Pulse Resp B/P (MAP) Pulse Ox O2 Delivery O2 Flow Rate FiO2 12/01/21 20:58 98.3 68 16 158/75 (102) 100 Room Air EKG: EKG: Declined [] Radiology/Procedures: Radiology/Procedures: [ IMAGING REPORT Addendum PATIENT: DANIEL PEREZ ACCOUNT: [id number] : 1940 LOCATION: ER AGE: 81 SEX: F EXAM STATUS: PRE ER ORD. PHYSICIAN: JERMAN GLASER MD REASON: fell off deck , hit back head PROCEDURE: CT HEAD AND CERVICAL SPINE WO ADDENDUM ADDENDUM #1 Addendum: CT C-Spine without contrast: Clinical History: Reason: fell off deck , hit back head / Spl. Instructions: / History: Technique: Axial helical images of the cervical spine were obtained without c ontrast, axial coronal and sagittal reconstruction was performed. COMPARISON: March 09, 2021 Findings: There is no loss of vertebral body stature. There is no prevertebral soft tissue swelling. The vertebral bodies are well aligned. The C1-C2 relationship is normal. 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 Evaluation of the central canal is limited without contrast. There is multiple posterior disc bulges resulting in flattening of the thecal sac. There does not appear to be gross flattening of the cervical cord. There is moderate narrowing of multiple neuroforamen. Impression: No acute findings. Clinical correlation suggested. PQRS Compliance Statement: One or more of the following individualized dose reduction techniques were utilized for this examination: 1. Automated exposure control 2. Adjustment of the mA and/or kV according to patient size 3. Use of iterative reconstruction technique Electronically signed by: Berlin Delcid III, MD (12/01/2021 10:25 PM) [facility] ORIGINAL REPORT CT Head W/O Contrast: History: Reason: fell off deck , hit back head / Spl. Instructions: / History: Comparison: March 09, 2021 Axial images were obtained without contrast. There is moderate diffuse atrophy. There is no mass effect, extraaxial fluid collections or hydrocephalus. There is no focal loss of stapleton-white matter distinction to suggest acute ischemia, i.e. stroke. There is a scalp hematoma posteriorly. Impression: No acute intracranial findings. End of impression PQRS Compliance Statement: One or more of the following individualized dose reduction techniques were utilized for this examination: 1. Automated exposure control 2. Adjustment of the mA and/or kV according to patient size 3. Use of iterative reconstruction technique Electronically signed by: Berlin Delcid III, MD (12/01/2021 9:44 PM) [facility] DICTATED AND SIGNED BY: BERLIN DELCDI III, MD DATE: 12/01/212219 CC: BENJI WINN MD; JERMAN GLASER MD ~ CT Head W/O Contrast: History: Reason: fell off deck , hit back head / Spl. Instructions: / History: Comparison: March [address] [place] [id number] IMAGING REPORT Signed PATIENT: DANIEL PEREZ ACCOUNT: [id number] : 1940 LOCATION: ER AGE: 81 SEX: F EXAM STATUS: PRE ER ORD. PHYSICIAN: JERMAN GLASER MD REASON: fall PROCEDURE: CHEST PA & LATERAL XR CHEST 2V Technique: PA and lateral views of the chest were obtained. Clinical History: Reason: fall / Spl. Instructions: / History: Comparison: April 22, 2021. Findings: The heart and pulmonary vasculature appear within normal limits. There is a large hiatal hernia. The pleural margins are clear. Impression: Stable appearance of the chest. Electronically signed by: Berlin Delcid III, MD (12/01/2021 10:20 PM) [email or web address] DICTATED AND SIGNED BY: BERLIN DELCID III, MD DATE: 12/01/212217 CC: BENJI WINN MD; JERMAN GLASER MD ~ ][address] [address] IMAGING REPORT Signed PATIENT: DANIEL PEREZ ACCOUNT: [id number] : 1940 LOCATION: ER AGE: 81 SEX: F EXAM STATUS: PRE ER ORD. PHYSICIAN: JERMAN GLASER MD REASON: fall PROCEDURE: CHEST PA & LATERAL XR CHEST 2V Technique: PA and lateral views of the chest were obtained. Clinical History: Reason: fall / Spl. Instructions: / History: Comparison: April 22, 2021. Findings: The heart and pulmonary vasculature appear within normal limits. There is a large hiatal hernia. The pleural margins are clear. Impression: Stable appearance of the chest. Electronically signed by: Berlin Delcid III, MD (12/01/2021 10:20 PM) [employer] DICTATED AND SIGNED BY: BERLIN DELCID III, MD DATE: 12/01/212217 CC: BENJI WINN MD; JERMAN GLASER MD ~ Heart Score: C/O Chest Pain: N/A Risk Factors: Risk Factors: DM, Current or recent (<one month) smoker, HTN, HLP, family history of CAD, obesity. Risk Scores: Score 0 - 3: 2.5% MACE over next 6 weeks - Discharge Home Score 4 - 6: 20.3% MACE over next 6 weeks - Admit for Clinical Observation Score 7 - 10: 72.7% MACE over next 6 weeks - Early Invasive Strategies Course & Med Decision Making: Course & Med Decision Making Pertinent Labs and Imaging studies reviewed. (See chart for details) Ice packs as needed.. Follow up with Dr. Winn. Return if any concerns. Tylenol for pain. Polysporin to abrasions 4 times a day. Reexam of any concerns. Patient is discharged to the care of her daughter who will be with her tonight. Impression: 1. Head Injury 2. Hematoma 3. Concussion 4. Contusions and Abrasions [] Dragon Disclaimer: Dragon Disclaimer: This electronic medical record was generated, in whole or in part, using a voice recognition dictation system. Departure Departure: Referrals: BENJI WINN MD (PCP) Dragon Disclaimer This chart was dictated in whole or in part using Voice Recognition software in a busy, high-work load, and often noisy Emergency Department environment. It may contain unintended and wholly unrecognized errors or omissions. Dragon Disclaimer This chart was dictated in whole or in part using Voice Recognition software in a busy, high-work load, and often noisy Emergency Department environment. It may contain unintended and wholly unrecognized errors or omissions. Dragon Disclaimer This chart was dictated in whole or in part using Voice Recognition software in a busy, high-work load, and often noisy Emergency Department environment. It may contain unintended and wholly unrecognized errors or omissions. JERMAN GLASER MD December 01, 2021 21:04
--- NOTE | 2021-12-01 21:47 | RAD ---
CT Head W/O Contrast: History: Reason: fell off deck , hit back head / Spl. Instructions: / History: Comparison: March 09, 2021 Axial images were obtained without contrast. There is moderate diffuse atrophy. There is no mass effect, extraaxial fluid collections or hydrocep halus. There is no focal loss of stapleton-white matter distinction to suggest acute ischemia, i.e. stroke. There is a scalp hematoma posteriorly. Impression: No acute intracranial findings. End of impression PQRS Compliance Statement: One or more of the following individualized dose reduction techniques were utilized for this examinat ion: 1. Automated exposure control 2. Adjustment of the mA and/or kV according to patient size 3. Use of iterative reconstruction technique Electronically signed by: Marcial Beltran III, MD (12/01/2021 9:44 PM) [facility]
--- NOTE | 2021-12-01 22:22 | RAD ---
XR CHEST 2V Technique: PA and lateral views of the chest were obtained. Clinical History: Reason: fall / Spl. Instructions: / History: Comparison: April 22, 2021. Findings: The heart and pulmonary vasculature appear within normal limits. There is a large hiatal hernia. The pleural margins are clear. Impression: Stable appearance of the chest. Electronically signed by: Marcial Beltran III, MD (12/01/2021 10:20 PM) [facility]
[2021-12-02 00:36] VITALS: BP 137/73
== END 2021-12-02 00:35 | disposition home or self-care (01) ==
LOC: ER 20:47
DX: S06.0X9A Concussion with loss of consciousness of unspecified duration, initial encounter (principal); S00.03XA Contusion of scalp, initial encounter; S50.02XA Contusion of left elbow, initial encounter; S50.01XA Contusion of right elbow, initial encounter; M19.90 Unspecified osteoarthritis, unspecified site; K21.9 Gastro-esophageal reflux disease without esophagitis; Z87.440 Personal history of urinary (tract) infections; Z88.0 Allergy status to penicillin; Z88.8 Allergy status to other drugs, medicaments and biological substances; W01.198A Fall on same level from slipping, tripping and stumbling with subsequent striking against other object, initial encounter; Y93.89 Activity, other specified; Y92.89 Other specified places as the place of occurrence of the external cause; Y99.8 Other external cause status
CPT/HCPCS: 70450; 71046; 72125; 99284